=== PATIENT | male | born 2000 | race Caucasian/White ===

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

== ENCOUNTER → 2020-08-23 | Outpatient (CLI) | payer OTHER, MEDICAID ==
[~2020-08-23] MED LIST changes: +HYDR1TAB33 PO; +IBUP-1856 PO; -IBUP100S37 PO; +INVE234I IM; -MELA2.5C3 PO; +MELA2.5C4 PO; +MELATAB7 PO; +TRAZ-252 PO
[2020-08-23 10:32] LABS: BASO # 0.1 10^3/uL (0.0-0.2); BASO % 0.9 % (0.0-1.0); EOS # 0.5 10^3/uL (0.0-0.5); EOS % 6.5 % (0.0-3.0); HEMATOCRIT 46.3 % (42.0-52.0); HEMOGLOBIN 15.6 g/dl (13.5-17.5); LYMPH # 2.5 10^3/uL (1.5-5.0); LYMPH % 31.9 % (24.0-44.0); MEAN CORPUSCULAR HEMOGLOBIN 29.7 pg (27.0-33.0); MEAN CORPUSCULAR HGB CONC 33.7 g/dl (32.0-36.5); MONO # 0.6 10^3/uL (0.0-0.8); MONO % 7.2 % (2.0-8.0); NEUTROPHILS # 4.2 10^3/uL (1.5-8.5); NEUTROPHILS % 53.2 % (36.0-66.0); PLATELET COUNT, AUTOMATED 244 10^3/uL (150-450); RED BLOOD COUNT 5.26 10^6/uL (4.30-6.10); WHITE BLOOD COUNT 7.9 10^3/uL (4.0-10.0)
[2020-08-23 10:41] LABS: HEMOGLOBIN A1c 5.2 %
[2020-08-23 10:59] LABS: ALBUMIN 4.1 GM/DL (3.2-5.2); ALT/SGPT 64 U/L (12-78); BILIRUBIN,TOTAL 0.6 MG/DL (0.2-1.0); BLOOD UREA NITROGEN 11 MG/DL (7-18); CALCIUM LEVEL 9.2 MG/DL (8.5-10.1); CARBON DIOXIDE LEVEL 30 MEQ/L (21-32); CHLORIDE LEVEL 107 MEQ/L (98-107); CHOLESTEROL LEVEL 155 MG/DL (<200); CHOLESTEROL RISK RATIO 3.875 (<5); CREATININE FOR GFR 0.87 MG/DL (0.70-1.30); GLUCOSE, FASTING 98 MG/DL (70-100); HDL CHOLESTEROL 40 MG/DL (>40); LDL CHOLESTEROL 84 MG/DL (<100); NON-HDL-C 115 MG/DL; POTASSIUM SERUM 4.1 MEQ/L (3.5-5.1); SODIUM LEVEL 139 MEQ/L (136-145); THYROID STIMULATING HORMONE 0.511 uIU/ML (0.463-3.98); TOTAL PROTEIN 7.5 GM/DL (6.4-8.2); TRIGLYCERIDES LEVEL 157 MG/DL (<150)
== END ==
LOC: M WUC 08:23
PROVIDERS: ATTEND Nurse Practitioner Psychiatric/Mental Health
DX: F25.0 Schizoaffective disorder, bipolar type (principal)

== ENCOUNTER 2021-05-02 13:48 | Inpatient (IN) | payer BC, MEDICAID, OTHER ==
[~2021-05-02] VITALS: Ht 177.8 cm; Wt 71.4 kg
[2021-05-02 14:49] LABS: HEMATOCRIT 44.7 % (42.0-52.0); HEMOGLOBIN 15.4 g/dl (13.5-17.5); MEAN CORPUSCULAR HEMOGLOBIN 29.2 pg (27.0-33.0); MEAN CORPUSCULAR HGB CONC 34.5 g/dl (32.0-36.5); MEAN CORPUSCULAR VOLUME 84.7 fl (80.0-96.0); PLATELET COUNT, AUTOMATED 340 10^3/uL (150-450); RED BLOOD COUNT 5.28 10^6/uL (4.30-6.10); WHITE BLOOD COUNT 7.2 10^3/uL (4.0-10.0)
[2021-05-02 15:28] LABS: ACETAMINOPHEN LEVEL < 2.0 UG/ML (10.0-30.0); ALBUMIN 4.8 GM/DL (3.2-5.2); ALT/SGPT 28 U/L (12-78); BILIRUBIN,DIRECT 0.2 MG/DL (0.0-0.2); BILIRUBIN,TOTAL 0.8 MG/DL (0.2-1.0); BLOOD UREA NITROGEN 15 MG/DL (7-18); CALCIUM LEVEL 9.9 MG/DL (8.5-10.1); CARBON DIOXIDE LEVEL 21 MEQ/L (21-32); CHLORIDE LEVEL 106 MEQ/L (98-107); CREATININE FOR GFR 1.01 MG/DL (0.70-1.30); ETHYL ALCOHOL (ETHANOL) < 0.003 % (0.000-0.010); GLOMERULAR FILTRATION RATE > 60.0 (>60); GLUCOSE, FASTING 77 MG/DL (70-100); POTASSIUM SERUM 4.5 MEQ/L (3.5-5.1); SALICYLATE LEVEL 1.7 MG/DL (5.0-30.0); SODIUM LEVEL 140 MEQ/L (136-145); TOTAL PROTEIN 8.8 GM/DL (6.4-8.2)
[2021-05-02] MEDS ORDERED: OLANZapine ORAL DISINTEGRATING TAB 5MG PO ONE (15:50)
[2021-05-02] MEDS ORDERED: HOME MED LIST COMPLETE! XX SCH (18:00)
[2021-05-02 20:24] LABS: AMPHETAMINES LEVEL URINE NEGATIVE (NEGATIVE); BARBITURATES URINE NEGATIVE (NEGATIVE); BENZODIAZEPINES URINE NEGATIVE (NEGATIVE); CANNABINOIDS URINE NEGATIVE (NEGATIVE); COCAINE METABOLITE URINE NEGATIVE (NEGATIVE); METHADONE URINE NEGATIVE (NEGATIVE); OPIATES URINE NEGATIVE (NEGATIVE); PHENCYCLIDINE URINE NEGATIVE (NEGATIVE)
[2021-05-02 23:42] LABS: RSV AMPLIFICATION NEGATIVE (NEGATIVE)
[2021-05-03] MEDS ORDERED: MAALOX 30 ML SUSP *UDC PO PRN (00:15)
[2021-05-03] MEDS ORDERED: ACETAMINOPHEN TAB 650MG DOSE (2X325MG) PO PRN (00:15)
[2021-05-03] MEDS ORDERED: MOM 30ML SUSPENSION UDC PO PRN (00:15)
[2021-05-03 01:55] VITALS: BP 138/74
[2021-05-03 07:11] VITALS: BP 141/66
[2021-05-03 18:54] VITALS: BP 140/78
[2021-05-04 06:41] VITALS: BP 143/76
[2021-05-04] MEDS ORDERED: INFLUENZA QUADRIVALENT PF VACCINE 0.5ML SYRINGE IM ONE (09:00)
[2021-05-04 18:56] VITALS: BP 120/70
[2021-05-04] MEDS: traZODone 50 MG TAB PO PRN (20:05)
[2021-05-05 06:39] VITALS: BP 122/76
[2021-05-05 16:27] VITALS: BP 132/78
[2021-05-06 06:40] VITALS: BP 139/78
[2021-05-06] MEDS: NICOTINE 21MG/24HR 1 EA TRANSDERMAL TD PRN (08:40)
[2021-05-06 16:41] VITALS: BP 131/78
[2021-05-06] MEDS: traZODone 50 MG TAB PO PRN (20:10)
[2021-05-07 06:19] VITALS: BP 161/75
[2021-05-07] MEDS: NICOTINE 21MG/24HR 1 EA TRANSDERMAL TD PRN (11:04)
[2021-05-07] MEDS ORDERED: hydrOXYzine 25 MG TAB PO PRN (11:25)
[2021-05-07] MEDS ORDERED: busPIRone 5 MG TAB PO ONE (11:45)
[2021-05-07 17:15] VITALS: BP 108/63
[2021-05-07] MEDS: OLANZapine ORAL DISINTEGRATING TAB 5MG PO PRN (23:49)
[2021-05-08 07:01] VITALS: BP 107/52
[2021-05-08] MEDS ORDERED: ARIPiprazole MONOHYDRATE 400 MG INJ (ABILIFY) IM ONE (09:00)
[2021-05-08] MEDS: busPIRone 5 MG TAB PO SCH ×2 (10:24→21:46)
[2021-05-08] MEDS: NICOTINE 21MG/24HR 1 EA TRANSDERMAL TD PRN (15:31)
[2021-05-08 19:04] VITALS: BP 133/60
[2021-05-09] MEDS: traZODone 50 MG TAB PO PRN (01:14)
[2021-05-09] MEDS: OLANZapine ORAL DISINTEGRATING TAB 5MG PO PRN ×2 (01:14→22:19)
[2021-05-09 06:59] VITALS: BP 103/50
[2021-05-09] MEDS: busPIRone 5 MG TAB PO SCH ×2 (09:45→20:58)
[2021-05-09] MEDS: SENOKOT S TAB PO SCH ×2 (12:19→20:58)
[2021-05-09 12:38] LABS: HEMATOCRIT 43.8 % (42.0-52.0); HEMOGLOBIN 15.3 g/dl (13.5-17.5); MEAN CORPUSCULAR HEMOGLOBIN 29.5 pg (27.0-33.0); MEAN CORPUSCULAR HGB CONC 34.9 g/dl (32.0-36.5); MEAN CORPUSCULAR VOLUME 84.6 fl (80.0-96.0); PLATELET COUNT, AUTOMATED 290 10^3/uL (150-450); RED BLOOD COUNT 5.18 10^6/uL (4.30-6.10); WHITE BLOOD COUNT 8.9 10^3/uL (4.0-10.0)
[2021-05-09 13:03] LABS: BLOOD UREA NITROGEN 19 MG/DL (7-18); CALCIUM LEVEL 10.3 MG/DL (8.5-10.1); CARBON DIOXIDE LEVEL 28 MEQ/L (21-32); CHLORIDE LEVEL 105 MEQ/L (98-107); CREATININE FOR GFR 1.02 MG/DL (0.70-1.30); GLOMERULAR FILTRATION RATE > 60.0 (>60); GLUCOSE, FASTING 104 MG/DL (70-100); POTASSIUM SERUM 4.3 MEQ/L (3.5-5.1); SODIUM LEVEL 138 MEQ/L (136-145)
[2021-05-09] MEDS: MIRALAX *UNIT DOSE* 17GM PACKET PO SCH (13:24)
[2021-05-09 16:37] VITALS: BP 114/68
[2021-05-10 06:33] VITALS: BP 106/52
[2021-05-10] MEDS: SENOKOT S TAB PO SCH ×3 (09:00→21:36)
[2021-05-10] MEDS: MIRALAX *UNIT DOSE* 17GM PACKET PO SCH ×2 (09:00→10:14)
[2021-05-10] MEDS: busPIRone 5 MG TAB PO SCH ×2 (09:13→21:36)
[2021-05-10 16:19] VITALS: BP_SYST 140; BP_DIAS 72; BP_DIAS 83
[2021-05-11 06:40] VITALS: BP 118/56
[2021-05-11] MEDS: busPIRone 5 MG TAB PO SCH ×2 (08:46→20:04)
[2021-05-11] MEDS: SENOKOT S TAB PO SCH ×2 (08:46→20:04)
[2021-05-11] MEDS: NICOTINE 21MG/24HR 1 EA TRANSDERMAL TD PRN (08:47)
[2021-05-11] MEDS: MIRALAX *UNIT DOSE* 17GM PACKET PO SCH (08:48)
[2021-05-11] MEDS: OLANZapine ORAL DISINTEGRATING TAB 5MG PO PRN (12:59)
[2021-05-11 18:12] VITALS: BP 124/74
[2021-05-11] MEDS: traZODone 50 MG TAB PO PRN (20:04)
[2021-05-12] MEDS: OLANZapine ORAL DISINTEGRATING TAB 5MG PO PRN ×2 (00:43→16:13)
[2021-05-12 06:59] VITALS: BP 110/63
[2021-05-12] MEDS: MIRALAX *UNIT DOSE* 17GM PACKET PO SCH (08:56)
[2021-05-12] MEDS: SENOKOT S TAB PO SCH ×2 (08:56→20:33)
[2021-05-12] MEDS: busPIRone 5 MG TAB PO SCH ×2 (08:56→20:33)
[2021-05-12] MEDS: NICOTINE 21MG/24HR 1 EA TRANSDERMAL TD PRN (09:39)
[2021-05-12 17:52] VITALS: BP 113/59
[2021-05-12] MEDS: traZODone 50 MG TAB PO PRN (20:33)
[2021-05-13 07:06] VITALS: BP 120/56
[2021-05-13] MEDS: MIRALAX *UNIT DOSE* 17GM PACKET PO SCH (08:26)
[2021-05-13] MEDS: SENOKOT S TAB PO SCH (08:30)
[2021-05-13] MEDS: busPIRone 5 MG TAB PO SCH (08:31)
[2021-05-13] MEDS ORDERED: BENZ0.5T23 PO (10:04)
[2021-05-13] MEDS ORDERED: BUSP5TA PO (10:04)
[2021-05-13] MEDS ORDERED: TRAZ-252 PO (10:04)
[2021-05-13] MEDS ORDERED: ABIL1INJ2 IM (10:04)
[2021-05-13] MEDS: OLANZapine ORAL DISINTEGRATING TAB 5MG PO PRN (10:15)
== END 2021-05-13 13:05 | disposition home or self-care (01) | DRG 750 ==
LOC: M ED 13:48 → M ED INP 05-03 00:11 → M PSY 05-03 01:47
PROVIDERS: ADMIT Psychiatry & Neurology Psychiatry; ATTEND Psychiatry & Neurology Psychiatry
DX: F25.0 Schizoaffective disorder, bipolar type (principal); Z91.14 Patient's other noncompliance with medication regimen; R45.851 Suicidal ideations; Z91.018 Allergy to other foods; Z88.8 Allergy status to other drugs, medicaments and biological substances; F17.200 Nicotine dependence, unspecified, uncomplicated; F12.90 Cannabis use, unspecified, uncomplicated; K59.00 Constipation, unspecified; R33.9 Retention of urine, unspecified

== ENCOUNTER 2021-11-26 03:29 | Inpatient (IN) | payer MEDICAID, OTHER, SELFPAY ==
[~2021-11-26 03:29] MED LIST changes: +ABIL1INJ2 IM; +BENZ0.5T23 PO; +BUSP5TA PO
[2021-11-26] MEDS ORDERED: diphenhydrAMINE 50MG/ML VIAL (J1200) IM ONE (03:35)
[2021-11-26] MEDS ORDERED: MIDAZOLAM INJ 2MG/2ML VIAL (J2250 PER 1MG) IM ONE (03:35)
[2021-11-26] MEDS ORDERED: HALOPERIDOL 5MG/ML VIAL (J1630 PER 1) IM ONE (03:35)
[2021-11-26] MEDS ORDERED: HALOPERIDOL 5MG/ML VIAL (J1630 PER 1) As Ordered ONE (03:37)
[2021-11-26] MEDS ORDERED: NS 1,000 ML IV ONE (03:50)
[2021-11-26] MEDS ORDERED: LORazepam 2 MG/ML VIAL IV STA ×4 (04:00→05:32)
[2021-11-26 04:36] LABS: BASO # 0.2 10^3/uL (0.0-0.2); BASO % 0.6 % (0.0-1.0); EOS # 0.5 10^3/uL (0.0-0.5); EOS % 1.9 % (0.0-3.0); HEMATOCRIT 50.2 % (42.0-52.0); HEMOGLOBIN 15.3 g/dl (13.5-17.5); LYMPH # 9.5 10^3/uL (1.5-5.0); LYMPH % 38.4 % (24.0-44.0); MEAN CORPUSCULAR HEMOGLOBIN 28.8 pg (27.0-33.0); MEAN CORPUSCULAR HGB CONC 30.5 g/dl (32.0-36.5); MEAN CORPUSCULAR VOLUME 94.4 fl (80.0-96.0); MONO # 1.4 10^3/uL (0.0-0.8); MONO % 5.4 % (2.0-8.0); NEUTROPHILS # 12.9 10^3/uL (1.5-8.5); NEUTROPHILS % 51.9 % (36.0-66.0); PLATELET COUNT, AUTOMATED 503 10^3/uL (150-450); RED BLOOD COUNT 5.32 10^6/uL (4.30-6.10); WHITE BLOOD COUNT 24.8 10^3/uL (4.0-10.0)
[2021-11-26 04:46] LABS: ABG BASE EXCESS -15.8 (-2.0-2.0); ABG HCO3 10.5 MEQ/L (22.0-26.0); ABG O2 SATURATION 96.8 % (95.0-99.0); ABG PARTIAL PRESSURE O2 103.8 mmHg (75.0-100.0); ABG STANDARD HCO3 12.8 MEQ/L (22.0-26.0); ABG TOTAL CO2 11.3 MEQ/L (22.0-29.0)
[2021-11-26 04:48] LABS: ABG pH (ARTERIAL) 7.206 UNITS (7.350-7.450)
[2021-11-26] MEDS ORDERED: NS 2,300 ML in IV 1 EA IV ONE (04:50)
[2021-11-26 04:55] LABS: RSV AMPLIFICATION NEGATIVE (NEGATIVE)
[2021-11-26 05:01] LABS: CK-MB VALUE MASS 1.9 NG/ML (<3.6); MB/CK RELATIVE INDEX 0.6 (< OR =4)
[2021-11-26 05:10] LABS: AMPHETAMINES LEVEL URINE NEGATIVE (NEGATIVE); BARBITURATES URINE NEGATIVE (NEGATIVE); BENZODIAZEPINES URINE NEGATIVE (NEGATIVE); CANNABINOIDS URINE NEGATIVE (NEGATIVE); COCAINE METABOLITE URINE NEGATIVE (NEGATIVE); METHADONE URINE NEGATIVE (NEGATIVE); OPIATES URINE NEGATIVE (NEGATIVE); PHENCYCLIDINE URINE NEGATIVE (NEGATIVE)
[2021-11-26 05:15] LABS: ACETAMINOPHEN LEVEL < 2.0 UG/ML (10.0-30.0); ALBUMIN 4.7 GM/DL (3.2-5.2); ALT/SGPT 44 U/L (12-78); BILIRUBIN,DIRECT 0.1 MG/DL (0.0-0.2); BILIRUBIN,TOTAL 0.4 MG/DL (0.2-1.0); BLOOD UREA NITROGEN 13 MG/DL (7-18); CALCIUM LEVEL 10.3 MG/DL (8.5-10.1); CARBON DIOXIDE LEVEL 8 MEQ/L (21-32); CHLORIDE LEVEL 99 MEQ/L (98-107); CREATININE FOR GFR 1.54 MG/DL (0.70-1.30); ETHYL ALCOHOL (ETHANOL) < 0.003 % (0.000-0.010); GLOMERULAR FILTRATION RATE > 60.0 (>60); GLUCOSE, FASTING 241 MG/DL (70-100); POTASSIUM SERUM 4.3 MEQ/L (3.5-5.1); SALICYLATE LEVEL 2.6 MG/DL (5.0-30.0); SODIUM LEVEL 136 MEQ/L (136-145); TOTAL PROTEIN 9.1 GM/DL (6.4-8.2)
[2021-11-26] MEDS ORDERED: ACETAMINOPHEN 650 MG SUPP PR ONE (06:10)
[2021-11-26 07:28] LABS: CK-MB VALUE MASS 4.4 NG/ML (<3.6); MB/CK RELATIVE INDEX 0.42 (< OR =4)
[2021-11-26] MEDS ORDERED: NS 1,000 ML IV SCH (07:35)
[2021-11-26 08:09] LABS: BASO # 0.1 10^3/uL (0.0-0.2); BASO % 0.2 % (0.0-1.0); EOS % 0.1 % (0.0-3.0); HEMATOCRIT 38.7 % (42.0-52.0); HEMOGLOBIN 13.2 g/dl (13.5-17.5); LYMPH # 2.1 10^3/uL (1.5-5.0); LYMPH % 9.9 % (24.0-44.0); MEAN CORPUSCULAR HEMOGLOBIN 29.3 pg (27.0-33.0); MEAN CORPUSCULAR HGB CONC 34.1 g/dl (32.0-36.5); MEAN CORPUSCULAR VOLUME 85.8 fl (80.0-96.0); MONO # 1.1 10^3/uL (0.0-0.8); MONO % 5.3 % (2.0-8.0); NEUTROPHILS # 17.7 10^3/uL (1.5-8.5); NEUTROPHILS % 83.7 % (36.0-66.0); RED BLOOD COUNT 4.51 10^6/uL (4.30-6.10); WHITE BLOOD COUNT 21.1 10^3/uL (4.0-10.0)
[2021-11-26 08:35] LABS: PLATELET COUNT, AUTOMATED 302 10^3/uL (150-450)
[2021-11-26] MEDS: FOLIC ACID 1MG TAB PO SCH (09:00)
[2021-11-26] MEDS: MULTIVITAMINS/MINERALS THERAP 1 TAB PO SCH (09:00)
[2021-11-26] MEDS: THIAMINE 100 MG TAB PO SCH ×2 (09:00→21:56)
[2021-11-26] MEDS ORDERED: GLUCOSE 4GM CHEW TABLET PO PRN (09:45)
[2021-11-26] MEDS ORDERED: DEXTROSE 50% 50 ML SYRINGE IV PRN (09:45)
[2021-11-26] MEDS ORDERED: GLUCAGON INJ 1MG VIAL SC PRN (09:45)
[2021-11-26] MEDS ORDERED: ACETAMINOPHEN TAB 650MG DOSE (2X325MG) PO PRN (09:45)
[2021-11-26 09:46] LABS: ABG BASE EXCESS -5.1 (-2.0-2.0); ABG HCO3 18.8 MEQ/L (22.0-26.0); ABG O2 SATURATION 97.5 % (95.0-99.0); ABG PARTIAL PRESSURE O2 100.5 mmHg (75.0-100.0); ABG STANDARD HCO3 20.3 MEQ/L (22.0-26.0); ABG TOTAL CO2 19.8 MEQ/L (22.0-29.0); ABG pH (ARTERIAL) 7.387 UNITS (7.350-7.450)
[2021-11-26] MEDS ORDERED: ABIL1INJ2 IM (09:59)
[2021-11-26] MEDS ORDERED: HOME MED LIST COMPLETE! XX SCH (10:00)
[2021-11-26 10:32] LABS: BASO % 0.2 % (0.0-1.0); EOS % 0.2 % (0.0-3.0); HEMATOCRIT 38.7 % (42.0-52.0); HEMOGLOBIN 13.1 g/dl (13.5-17.5); LYMPH # 1.9 10^3/uL (1.5-5.0); LYMPH % 11.4 % (24.0-44.0); MEAN CORPUSCULAR HEMOGLOBIN 29.4 pg (27.0-33.0); MEAN CORPUSCULAR HGB CONC 33.9 g/dl (32.0-36.5); MONO % 6.2 % (2.0-8.0); NEUTROPHILS # 13.5 10^3/uL (1.5-8.5); NEUTROPHILS % 81.3 % (36.0-66.0); PLATELET COUNT, AUTOMATED 282 10^3/uL (150-450); RED BLOOD COUNT 4.45 10^6/uL (4.30-6.10); WHITE BLOOD COUNT 16.5 10^3/uL (4.0-10.0)
[2021-11-26 10:45] LABS: APPEARANCE, URINE MANUAL CLEAR (CLEAR); COLOR, URINE MANUAL YELLOW (YELLOW)
[2021-11-26 10:46] LABS: BILIRUBIN, URINE MANUAL NEGATIVE (NEGATIVE); BLOOD URINE MANUAL TRACE (NEGATIVE); GLUCOSE, URINE (UA) MANUAL NEGATIVE (NEGATIVE); KETONE, URINE MANUAL 1+ mg/dL (NEGATIVE); LEUKOCYTE ESTERASE, URINE MAN NEGATIVE (NEGATIVE); NITRITE, URINE MANUAL NEGATIVE (NEGATIVE); PROTEIN, URINE MANUAL TRACE mg/dL (NEGATIVE); UROBILINOGEN, URINE MANUAL NORMAL (NORMAL)
[2021-11-26 10:55] LABS: HYALINE CAST, URINE 20-30 /lpf (0-1)
[2021-11-26 10:56] LABS: MUCUS, URINE MOD AMOUNT (NEGATIVE)
[2021-11-26 10:57] LABS: BACTERIA, URINE SMALL AMOUNT; SQUAMOUS EPITHELIAL CELL URINE SMALL AMOUNT /hpf (SMALL AMT)
[2021-11-26] MEDS: INSULIN LISPRO (NovoLOG) PER UNIT SC SCH ×3 (12:00→23:19)
[2021-11-26 12:17] LABS: ALBUMIN 3.7 GM/DL (3.2-5.2); ALT/SGPT 42 U/L (12-78); BILIRUBIN,TOTAL 0.5 MG/DL (0.2-1.0); BLOOD UREA NITROGEN 9 MG/DL (7-18); CALCIUM LEVEL 8.1 MG/DL (8.5-10.1); CARBON DIOXIDE LEVEL 21 MEQ/L (21-32); CHLORIDE LEVEL 112 MEQ/L (98-107); CREATININE FOR GFR 1.03 MG/DL (0.70-1.30); GLOMERULAR FILTRATION RATE > 60.0 (>60); GLUCOSE, FASTING 87 MG/DL (70-100); POTASSIUM SERUM 3.9 MEQ/L (3.5-5.1); SODIUM LEVEL 140 MEQ/L (136-145); TOTAL PROTEIN 6.8 GM/DL (6.4-8.2)
[2021-11-26] MEDS: NS 1,000 ML IV SCH ×2 (13:50→21:57)
[2021-11-26] MEDS: HEPARIN SOD (PORCINE) 5000UNITS/ML 1ML VIAL/SYRINGE SC SCH ×2 (14:00→21:56)
[2021-11-26 17:00] VITALS: BP 133/60
[2021-11-26 20:00] VITALS: BP 118/57
[2021-11-26] MEDS: LORazepam 2 MG TAB PO PRN (21:56)
[2021-11-27] VITALS (10 sets, daily range): BP systolic 117–132; BP diastolic 55–74
[2021-11-27] MEDS: NS 1,000 ML IV SCH (02:37)
[2021-11-27] MEDS: INSULIN LISPRO (NovoLOG) PER UNIT SC SCH ×3 (05:32→18:00)
[2021-11-27] MEDS: HEPARIN SOD (PORCINE) 5000UNITS/ML 1ML VIAL/SYRINGE SC SCH ×4 (05:39→21:23)
[2021-11-27 06:08] LABS: BASO # 0.1 10^3/uL (0.0-0.2); BASO % 0.7 % (0.0-1.0); EOS # 0.5 10^3/uL (0.0-0.5); EOS % 6.9 % (0.0-3.0); HEMATOCRIT 31.9 % (42.0-52.0); LYMPH # 1.7 10^3/uL (1.5-5.0); LYMPH % 24.4 % (24.0-44.0); MEAN CORPUSCULAR HEMOGLOBIN 29.6 pg (27.0-33.0); MEAN CORPUSCULAR HGB CONC 32.3 g/dl (32.0-36.5); MEAN CORPUSCULAR VOLUME 91.7 fl (80.0-96.0); MONO # 0.6 10^3/uL (0.0-0.8); MONO % 8.5 % (2.0-8.0); NEUTROPHILS # 4.1 10^3/uL (1.5-8.5); NEUTROPHILS % 59.2 % (36.0-66.0); RED BLOOD COUNT 3.48 10^6/uL (4.30-6.10)
[2021-11-27 06:24] LABS: HEMOGLOBIN 10.3 g/dl (13.5-17.5); PLATELET COUNT, AUTOMATED 179 10^3/uL (150-450)
[2021-11-27 06:47] LABS: ALT/SGPT 68 U/L (12-78); BILIRUBIN,TOTAL 0.4 MG/DL (0.2-1.0); BLOOD UREA NITROGEN 8 MG/DL (7-18); CALCIUM LEVEL 7.7 MG/DL (8.5-10.1); CARBON DIOXIDE LEVEL 24 MEQ/L (21-32); CHLORIDE LEVEL 112 MEQ/L (98-107); CREATININE FOR GFR 0.78 MG/DL (0.70-1.30); GLOMERULAR FILTRATION RATE > 60.0 (>60); GLUCOSE, FASTING 94 MG/DL (70-100); POTASSIUM SERUM 4.1 MEQ/L (3.5-5.1); SODIUM LEVEL 140 MEQ/L (136-145)
[2021-11-27] MEDS: FOLIC ACID 1MG TAB PO SCH (11:09)
[2021-11-27] MEDS: THIAMINE 100 MG TAB PO SCH ×2 (11:09→21:15)
[2021-11-27] MEDS: LR 1,000 ML IV SCH ×2 (11:09→17:33)
[2021-11-27] MEDS: MULTIVITAMINS/MINERALS THERAP 1 TAB PO SCH (11:10)
[2021-11-27] MEDS ORDERED: NICOTINE 14 MG/24 HR TRANSDERMAL TD SCH (22:05)
[2021-11-27] MEDS ORDERED: NICOTINE POLACRILEX 2 MG GUM PO PRN (22:35)
[2021-11-27] MEDS ORDERED: NICOTINE 14 MG/24 HR TRANSDERMAL TD ONE (23:00)
[2021-11-28 00:09] VITALS: BP 117/56
[2021-11-28] MEDS: LR 1,000 ML IV SCH ×3 (00:16→12:25)
[2021-11-28] MEDS: LORazepam 2 MG TAB PO PRN (00:45)
[2021-11-28 04:09] VITALS: BP 116/59
[2021-11-28] MEDS: HEPARIN SOD (PORCINE) 5000UNITS/ML 1ML VIAL/SYRINGE SC SCH ×3 (05:14→21:10)
[2021-11-28 05:58] LABS: BASO # 0.1 10^3/uL (0.0-0.2); BASO % 0.7 % (0.0-1.0); EOS # 0.7 10^3/uL (0.0-0.5); EOS % 9.3 % (0.0-3.0); HEMATOCRIT 39.7 % (42.0-52.0); HEMOGLOBIN 12.9 g/dl (13.5-17.5); LYMPH # 2.4 10^3/uL (1.5-5.0); LYMPH % 31.6 % (24.0-44.0); MEAN CORPUSCULAR HEMOGLOBIN 28.9 pg (27.0-33.0); MEAN CORPUSCULAR HGB CONC 32.5 g/dl (32.0-36.5); MEAN CORPUSCULAR VOLUME 88.8 fl (80.0-96.0); MONO # 0.7 10^3/uL (0.0-0.8); MONO % 8.7 % (2.0-8.0); NEUTROPHILS # 3.8 10^3/uL (1.5-8.5); NEUTROPHILS % 49.4 % (36.0-66.0); PLATELET COUNT, AUTOMATED 226 10^3/uL (150-450); RED BLOOD COUNT 4.47 10^6/uL (4.30-6.10); WHITE BLOOD COUNT 7.6 10^3/uL (4.0-10.0)
[2021-11-28] MEDS: INSULIN LISPRO (NovoLOG) PER UNIT SC SCH ×4 (06:00→17:19)
[2021-11-28 06:28] LABS: BLOOD UREA NITROGEN 6 MG/DL (7-18); CARBON DIOXIDE LEVEL 26 MEQ/L (21-32); CHLORIDE LEVEL 105 MEQ/L (98-107); CREATININE FOR GFR 0.78 MG/DL (0.70-1.30); GLOMERULAR FILTRATION RATE > 60.0 (>60); GLUCOSE, FASTING 102 MG/DL (70-100); MAGNESIUM LEVEL 1.8 MG/DL (1.8-2.4); PHOSPHORUS LEVEL 4.7 MG/DL (2.5-4.9); POTASSIUM SERUM 4.1 MEQ/L (3.5-5.1); SODIUM LEVEL 139 MEQ/L (136-145)
[2021-11-28 08:03] VITALS: BP 135/72
[2021-11-28] MEDS: THIAMINE 100 MG TAB PO SCH ×2 (08:50→21:08)
[2021-11-28] MEDS: FOLIC ACID 1MG TAB PO SCH (08:50)
[2021-11-28] MEDS: MULTIVITAMINS/MINERALS THERAP 1 TAB PO SCH (08:51)
[2021-11-28] MEDS: NS 1,000 ML IV SCH ×2 (16:36→23:11)
[2021-11-28 20:00] VITALS: BP 112/52
[2021-11-28 20:32] VITALS: BP 112/52
[2021-11-28] MEDS ORDERED: LORazepam 1 MG TAB PO ONE (20:50)
[2021-11-29 04:10] LABS: BASO # 0.1 10^3/uL (0.0-0.2); BASO % 0.7 % (0.0-1.0); EOS # 0.6 10^3/uL (0.0-0.5); EOS % 8.3 % (0.0-3.0); HEMATOCRIT 38.9 % (42.0-52.0); HEMOGLOBIN 13.1 g/dl (13.5-17.5); LYMPH # 2.6 10^3/uL (1.5-5.0); LYMPH % 34.6 % (24.0-44.0); MEAN CORPUSCULAR HEMOGLOBIN 29.8 pg (27.0-33.0); MEAN CORPUSCULAR HGB CONC 33.7 g/dl (32.0-36.5); MEAN CORPUSCULAR VOLUME 88.4 fl (80.0-96.0); MONO # 0.5 10^3/uL (0.0-0.8); MONO % 6.3 % (2.0-8.0); NEUTROPHILS # 3.7 10^3/uL (1.5-8.5); NEUTROPHILS % 49.8 % (36.0-66.0); PLATELET COUNT, AUTOMATED 238 10^3/uL (150-450); WHITE BLOOD COUNT 7.5 10^3/uL (4.0-10.0)
[2021-11-29 04:39] LABS: BLOOD UREA NITROGEN 9 MG/DL (7-18); CALCIUM LEVEL 8.8 MG/DL (8.5-10.1); CARBON DIOXIDE LEVEL 26 MEQ/L (21-32); CHLORIDE LEVEL 106 MEQ/L (98-107); CREATININE FOR GFR 0.73 MG/DL (0.70-1.30); GLOMERULAR FILTRATION RATE > 60.0 (>60); GLUCOSE, FASTING 114 MG/DL (70-100); MAGNESIUM LEVEL 1.8 MG/DL (1.8-2.4); PHOSPHORUS LEVEL 4.6 MG/DL (2.5-4.9); POTASSIUM SERUM 4.1 MEQ/L (3.5-5.1); SODIUM LEVEL 137 MEQ/L (136-145)
[2021-11-29] MEDS: NS 1,000 ML IV SCH ×3 (05:21→18:49)
[2021-11-29] MEDS: HEPARIN SOD (PORCINE) 5000UNITS/ML 1ML VIAL/SYRINGE SC SCH ×3 (05:22→20:31)
[2021-11-29 06:00] VITALS: BP 112/52
[2021-11-29 08:00] VITALS: BP 110/54
[2021-11-29] MEDS: MULTIVITAMINS/MINERALS THERAP 1 TAB PO SCH (09:19)
[2021-11-29] MEDS: FOLIC ACID 1MG TAB PO SCH (09:20)
[2021-11-29 15:46] VITALS: BP 111/52
[2021-11-29 18:50] VITALS: BP 128/67
[2021-11-29] MEDS ORDERED: LORazepam 0.5 MG TAB PO PRN (21:05)
[2021-11-29 22:00] VITALS: BP 131/70
[2021-11-30] MEDS: HEPARIN SOD (PORCINE) 5000UNITS/ML 1ML VIAL/SYRINGE SC SCH ×2 (01:53→14:00)
[2021-11-30] MEDS: NS 1,000 ML IV SCH ×3 (01:53→14:45)
[2021-11-30 06:00] VITALS: BP_SYST 131; BP_SYST 132; BP_DIAS 74; BP_DIAS 86
[2021-11-30 07:06] LABS: BLOOD UREA NITROGEN 8 MG/DL (7-18); CALCIUM LEVEL 8.7 MG/DL (8.5-10.1); CARBON DIOXIDE LEVEL 26 MEQ/L (21-32); CHLORIDE LEVEL 107 MEQ/L (98-107); CREATININE FOR GFR 0.74 MG/DL (0.70-1.30); GLOMERULAR FILTRATION RATE > 60.0 (>60); GLUCOSE, FASTING 109 MG/DL (70-100); MAGNESIUM LEVEL 1.9 MG/DL (1.8-2.4); PHOSPHORUS LEVEL 3.9 MG/DL (2.5-4.9); POTASSIUM SERUM 4.3 MEQ/L (3.5-5.1); SODIUM LEVEL 137 MEQ/L (136-145)
[2021-11-30] MEDS: MULTIVITAMINS/MINERALS THERAP 1 TAB PO SCH (09:09)
[2021-11-30] MEDS: FOLIC ACID 1MG TAB PO SCH (09:09)
[2021-11-30] MEDS ORDERED: THIA100T7 PO (13:57)
[2021-11-30] MEDS ORDERED: VITMTA PO (13:57)
[2021-11-30] MEDS ORDERED: FOLI1TAB11 PO (13:57)
[2021-11-30 14:00] VITALS: BP 136/65
[2021-11-30 17:11] VITALS: BP 132/59
== END 2021-11-30 17:15 | disposition home or self-care (01) | DRG 52 ==
LOC: M ED 03:29 → M ED INP 11:42 → M PCU 17:15 → M MS5PR 11-29 18:37
PROVIDERS: ADMIT Internal Medicine; ATTEND Internal Medicine
DX: G92.8 Other toxic encephalopathy (principal); N17.9 Acute kidney failure, unspecified; E87.20 Acidosis, unspecified; M62.82 Rhabdomyolysis; R82.1 Myoglobinuria; I27.20 Pulmonary hypertension, unspecified; F20.9 Schizophrenia, unspecified; Z78.1 Physical restraint status; F10.10 Alcohol abuse, uncomplicated; F14.10 Cocaine abuse, uncomplicated; F15.10 Other stimulant abuse, uncomplicated; Z91.018 Allergy to other foods; F17.210 Nicotine dependence, cigarettes, uncomplicated; F12.10 Cannabis abuse, uncomplicated; D72.829 Elevated white blood cell count, unspecified; I34.0 Nonrheumatic mitral (valve) insufficiency

== ENCOUNTER 2021-11-30 16:25 | Inpatient (IN) | payer OTHER ==
[~2021-11-30] VITALS: Ht 177.8 cm; Wt 75.4 kg
[~2021-11-30 16:25] MED LIST changes: +FOLI1TAB11 PO; +THIA100T7 PO; +VITMTA PO
[2021-11-30] MEDS ORDERED: ACETAMINOPHEN TAB 650MG DOSE (2X325MG) PO PRN (16:35)
[2021-11-30] MEDS ORDERED: MAALOX 30 ML SUSP *UDC PO PRN (16:35)
[2021-11-30] MEDS ORDERED: MOM 30ML SUSPENSION UDC PO PRN (16:35)
[2021-11-30 17:22] VITALS: BP 132/59
[2021-11-30] MEDS ORDERED: HOME MED LIST COMPLETE! XX SCH ×2 (17:55→18:00)
[2021-11-30] MEDS: LORazepam 0.5 MG TAB PO PRN (18:27)
[2021-12-01 06:34] VITALS: BP 137/65
[2021-12-01] MEDS ORDERED: NICOTINE 21MG/24HR 1 EA TRANSDERMAL TD SCH (09:00)
[2021-12-01] MEDS: FOLIC ACID 1MG TAB PO SCH (10:52)
[2021-12-01] MEDS: MULTIVITAMINS/MINERALS THERAP 1 TAB PO SCH (10:52)
[2021-12-01] MEDS: THIAMINE 100 MG TAB PO SCH (10:52)
[2021-12-01 12:43] LABS: HEMATOCRIT 45.9 % (42.0-52.0); HEMOGLOBIN 15.1 g/dl (13.5-17.5); MEAN CORPUSCULAR HEMOGLOBIN 29.4 pg (27.0-33.0); MEAN CORPUSCULAR HGB CONC 32.9 g/dl (32.0-36.5); MEAN CORPUSCULAR VOLUME 89.5 fl (80.0-96.0); PLATELET COUNT, AUTOMATED 291 10^3/uL (150-450); RED BLOOD COUNT 5.13 10^6/uL (4.30-6.10); WHITE BLOOD COUNT 9.4 10^3/uL (4.0-10.0)
[2021-12-01 13:13] LABS: BLOOD UREA NITROGEN 11 MG/DL (7-18); CALCIUM LEVEL 9.9 MG/DL (8.5-10.1); CARBON DIOXIDE LEVEL 30 MEQ/L (21-32); CHLORIDE LEVEL 103 MEQ/L (98-107); CREATININE FOR GFR 0.98 MG/DL (0.70-1.30); GLOMERULAR FILTRATION RATE > 60.0 (>60); GLUCOSE, FASTING 86 MG/DL (70-100); POTASSIUM SERUM 4.8 MEQ/L (3.5-5.1); SODIUM LEVEL 137 MEQ/L (136-145)
[2021-12-01] MEDS: NICOTINE POLACRILEX 2 MG GUM PO PRN ×3 (13:52→22:14)
[2021-12-01 16:25] VITALS: BP 112/58
[2021-12-01] MEDS: LORazepam 0.5 MG TAB PO PRN (18:04)
[2021-12-02] MEDS: NICOTINE POLACRILEX 2 MG GUM PO PRN ×2 (02:14→09:44)
[2021-12-02 06:44] VITALS: BP 124/65
[2021-12-02] MEDS: FOLIC ACID 1MG TAB PO SCH (09:43)
[2021-12-02] MEDS: THIAMINE 100 MG TAB PO SCH (09:43)
[2021-12-02] MEDS: MULTIVITAMINS/MINERALS THERAP 1 TAB PO SCH (09:43)
== END 2021-12-02 13:06 | disposition home or self-care (01) | DRG 751 ==
LOC: M PSY 17:21
PROVIDERS: ADMIT Psychiatry & Neurology Psychiatry; ATTEND Psychiatry & Neurology Psychiatry
DX: F29 Unspecified psychosis not due to a substance or known physiological condition (principal); F25.1 Schizoaffective disorder, depressive type; F15.90 Other stimulant use, unspecified, uncomplicated; F17.200 Nicotine dependence, unspecified, uncomplicated; F12.90 Cannabis use, unspecified, uncomplicated; Z91.018 Allergy to other foods; Z88.8 Allergy status to other drugs, medicaments and biological substances; Z79.899 Other long term (current) drug therapy

== ENCOUNTER 2022-01-16 00:41 | Emergency (ER) | payer MEDICAID, OTHER ==
[~2022-01-16] VITALS: Ht 177.8 cm; Wt 67.6 kg
[2022-01-16 01:05] LABS: HEMATOCRIT 45.2 % (42.0-52.0); HEMOGLOBIN 14.9 g/dl (13.5-17.5); MEAN CORPUSCULAR HEMOGLOBIN 28.6 pg (27.0-33.0); MEAN CORPUSCULAR VOLUME 86.8 fl (80.0-96.0); PLATELET COUNT, AUTOMATED 251 10^3/uL (150-450); RED BLOOD COUNT 5.21 10^6/uL (4.30-6.10); WHITE BLOOD COUNT 9.4 10^3/uL (4.0-10.0)
[2022-01-16 01:41] LABS: RSV AMPLIFICATION NEGATIVE (NEGATIVE)
[2022-01-16 02:06] LABS: ACETAMINOPHEN LEVEL < 2.0 UG/ML (10.0-20.0); ALBUMIN 4.4 G/DL (3.2-5.2); ALT/SGPT 26 U/L (7.0-40); BILIRUBIN,DIRECT 0.2 MG/DL (<0.4); BILIRUBIN,TOTAL 0.4 MG/DL (0.3-1.2); BLOOD UREA NITROGEN 10 MG/DL (9-23); CALCIUM LEVEL 9.2 MG/DL (8.5-10.1); CARBON DIOXIDE LEVEL 22 MMOL/L (20-31); CHLORIDE LEVEL 100 MMOL/L (98-107); CREATININE FOR GFR 0.95 MG/DL (0.70-1.30); ETHYL ALCOHOL (ETHANOL) 0.003 % (0.000-0.010); GLOMERULAR FILTRATION RATE > 60.0 (>60); GLUCOSE, FASTING 149 MG/DL (60-100); POTASSIUM SERUM 3.8 MMOL/L (3.5-5.1); SODIUM LEVEL 134 MMOL/L (136-145); THYROID STIMULATING HORMONE 0.711 uIU/ML (0.55-4.78)
[2022-01-16] MEDS: LORazepam 2 MG TAB PO STA ×2 (02:28→02:41)
[2022-01-16 03:07] LABS: SALICYLATE LEVEL < 3.0 MG/DL (<30)
[2022-01-16 03:33] LABS: AMPHETAMINES LEVEL URINE POSITIVE (NEGATIVE); BARBITURATES URINE NEGATIVE (NEGATIVE); BENZODIAZEPINES URINE NEGATIVE (NEGATIVE); CANNABINOIDS URINE NEGATIVE (NEGATIVE); COCAINE METABOLITE URINE NEGATIVE (NEGATIVE); METHADONE URINE NEGATIVE (NEGATIVE); OPIATES URINE NEGATIVE (NEGATIVE); PHENCYCLIDINE URINE NEGATIVE (NEGATIVE)
[2022-01-16 06:00] VITALS: BP 126/71
== END 2022-01-16 06:17 | disposition home or self-care (01) ==
LOC: M ED 00:41
DX: F19.159 Other psychoactive substance abuse with psychoactive substance-induced psychotic disorder, unspecified (principal); R45.851 Suicidal ideations; F25.9 Schizoaffective disorder, unspecified; R00.0 Tachycardia, unspecified; F17.200 Nicotine dependence, unspecified, uncomplicated; F10.10 Alcohol abuse, uncomplicated; Z88.1 Allergy status to other antibiotic agents; Z91.018 Allergy to other foods

== ENCOUNTER 2022-06-03 15:52 | Inpatient (IN) | payer MEDICAID, OTHER ==
[~2022-06-03] VITALS: Ht 177.8 cm; Wt 68.9 kg
[~2022-06-03 15:52] MED LIST changes: -IBUP-1856 PO; +IBUP100S54 PO
[2022-06-03 16:32] LABS: HEMATOCRIT 47.1 % (42.0-52.0); MEAN CORPUSCULAR HEMOGLOBIN 29.2 pg (27.0-33.0); MEAN CORPUSCULAR VOLUME 85.9 fl (80.0-96.0); PLATELET COUNT, AUTOMATED 278 10^3/uL (150-450); RED BLOOD COUNT 5.48 10^6/uL (4.30-6.10)
[2022-06-03 16:56] LABS: ETHYL ALCOHOL (ETHANOL) < 0.003 % (0.000-0.010)
[2022-06-03 16:58] LABS: SALICYLATE LEVEL < 3.0 MG/DL (<30)
[2022-06-03 16:59] LABS: ACETAMINOPHEN LEVEL < 2.0 UG/ML (10.0-20.0); ALBUMIN 4.4 G/DL (3.2-5.2); ALKALINE PHOSPHATASE 108 U/L (46-116); ALT/SGPT 27 U/L (7.0-40); AST/SGOT 20 U/L (<34); BILIRUBIN,DIRECT 0.4 MG/DL (<0.4); BILIRUBIN,TOTAL 0.8 MG/DL (0.3-1.2); BLOOD UREA NITROGEN 10 MG/DL (9-23); CALCIUM LEVEL 9.4 MG/DL (8.5-10.1); CARBON DIOXIDE LEVEL 29 MMOL/L (20-31); CHLORIDE LEVEL 103 MMOL/L (98-107); CREATININE FOR GFR 0.86 MG/DL (0.70-1.30); GLOMERULAR FILTRATION RATE > 60.0 (>60); GLUCOSE, FASTING 87 MG/DL (60-100); POTASSIUM SERUM 4.5 MMOL/L (3.5-5.1); SODIUM LEVEL 137 MMOL/L (136-145); TOTAL PROTEIN 7.9 G/DL (5.7-8.2)
[2022-06-03 17:01] LABS: THYROID STIMULATING HORMONE 0.761 uIU/ML (0.55-4.78)
[2022-06-03 17:19] LABS: CANNABINOIDS URINE NEGATIVE (NEGATIVE); PHENCYCLIDINE URINE NEGATIVE (NEGATIVE)
[2022-06-03 17:20] LABS: AMPHETAMINES LEVEL URINE NEGATIVE (NEGATIVE); BARBITURATES URINE NEGATIVE (NEGATIVE); BENZODIAZEPINES URINE NEGATIVE (NEGATIVE); COCAINE METABOLITE URINE NEGATIVE (NEGATIVE); METHADONE URINE NEGATIVE (NEGATIVE); OPIATES URINE NEGATIVE (NEGATIVE)
[2022-06-03] MEDS ORDERED: HOME MED LIST COMPLETE! XX SCH (18:40)
[2022-06-03] MEDS ORDERED: ACETAMINOPHEN TAB 650MG DOSE (2X325MG) PO PRN (19:00)
[2022-06-03] MEDS ORDERED: OLANZapine ORAL DISINTEGRATING TAB 5MG PO PRN (19:00)
[2022-06-03] MEDS ORDERED: MAALOX 30 ML SUSP *UDC PO PRN (19:00)
[2022-06-03] MEDS: traZODone 50 MG TAB PO PRN (23:42)
[2022-06-03 23:45] VITALS: BP 124/63
[2022-06-04] MEDS: NICOTINE 21MG/24HR 1 EA TRANSDERMAL TD SCH (08:38)
[2022-06-04 18:55] VITALS: BP 114/63
[2022-06-04] MEDS: traZODone 50 MG TAB PO PRN (21:19)
[2022-06-05 06:03] VITALS: BP 120/59
[2022-06-05] MEDS: NICOTINE 21MG/24HR 1 EA TRANSDERMAL TD SCH (09:00)
[2022-06-05 16:14] VITALS: BP 114/56
[2022-06-05] MEDS: traZODone 50 MG TAB PO PRN (21:12)
[2022-06-05] MEDS: MOM 30ML SUSPENSION UDC PO PRN (22:51)
[2022-06-06] MEDS: NICOTINE 21MG/24HR 1 EA TRANSDERMAL TD SCH (07:41)
[2022-06-06 16:31] VITALS: BP 119/57
[2022-06-07 06:52] VITALS: BP 121/56
[2022-06-07] MEDS: NICOTINE 21MG/24HR 1 EA TRANSDERMAL TD SCH (08:01)
[2022-06-07 18:42] VITALS: BP 131/65
[2022-06-07] MEDS: traZODone 50 MG TAB PO PRN (20:50)
[2022-06-08 05:58] VITALS: BP 101/61
[2022-06-08] MEDS: NICOTINE 21MG/24HR 1 EA TRANSDERMAL TD SCH (08:10)
[2022-06-08] MEDS ORDERED: ARIPiprazole MONOHYDRATE 400 MG INJ (ABILIFY)(FREE PSY INPT ONLY) IM ONE (13:00)
[2022-06-08 18:42] VITALS: BP 126/66
[2022-06-08] MEDS: MOM 30ML SUSPENSION UDC PO PRN (18:45)
[2022-06-09] MEDS: traZODone 50 MG TAB PO PRN (01:08)
[2022-06-09 05:51] VITALS: BP 107/57
[2022-06-09] MEDS: NICOTINE 21MG/24HR 1 EA TRANSDERMAL TD SCH (08:06)
[2022-06-09] MEDS ORDERED: ABIL1TAB11 PO ×2 (09:29→09:31)
[2022-06-09] MEDS ORDERED: ABIL1INJ2 IM (09:31)
== END 2022-06-09 11:58 | disposition home or self-care (01) | DRG 750 ==
LOC: M ED 15:52 → M ED INP 18:57 → M PSY 22:38
PROVIDERS: ADMIT Psychiatry & Neurology Psychiatry; ATTEND Psychiatry & Neurology Psychiatry
DX: F25.1 Schizoaffective disorder, depressive type (principal); F17.200 Nicotine dependence, unspecified, uncomplicated; F12.90 Cannabis use, unspecified, uncomplicated; F15.90 Other stimulant use, unspecified, uncomplicated; Z91.018 Allergy to other foods; Z88.8 Allergy status to other drugs, medicaments and biological substances

== ENCOUNTER → 2022-08-12 | Outpatient (CLI) | payer BC, OTHER, MEDICAID ==
[~2022-08-12] MED LIST changes: +ABIL1TAB11 PO; +BENZ0.5T2 PO; -BENZ0.5T23 PO
[2022-08-12 13:07] LABS: BASO # 0.1 10^3/uL (0.0-0.2); EOS # 0.8 10^3/uL (0.0-0.5); EOS % 9.6 % (0.0-3.0); HEMATOCRIT 41.6 % (42.0-52.0); HEMOGLOBIN 14.3 g/dl (13.5-17.5); LYMPH # 1.9 10^3/uL (1.5-5.0); LYMPH % 24.3 % (24.0-44.0); MEAN CORPUSCULAR HEMOGLOBIN 29.8 pg (27.0-33.0); MEAN CORPUSCULAR HGB CONC 34.4 g/dl (32.0-36.5); MEAN CORPUSCULAR VOLUME 86.7 fl (80.0-96.0); MONO # 0.6 10^3/uL (0.0-0.8); MONO % 7.7 % (2.0-8.0); NEUTROPHILS # 4.5 10^3/uL (1.5-8.5); NEUTROPHILS % 57.1 % (36.0-66.0); PLATELET COUNT, AUTOMATED 276 10^3/uL (150-450); WHITE BLOOD COUNT 7.9 10^3/uL (4.0-10.0)
[2022-08-12 13:14] LABS: HEMOGLOBIN A1c 5.1 % (4.0-6.0)
[2022-08-12 13:26] LABS: ALBUMIN 3.9 G/DL (3.2-5.2); ALKALINE PHOSPHATASE 118 U/L (46-116); ALT/SGPT 21 U/L (7.0-40); AST/SGOT 18 U/L (<34); BILIRUBIN,TOTAL 0.7 MG/DL (0.3-1.2); BLOOD UREA NITROGEN 11 MG/DL (9-23); CALCIUM LEVEL 8.8 MG/DL (8.5-10.1); CARBON DIOXIDE LEVEL 28 MMOL/L (20-31); CHLORIDE LEVEL 104 MMOL/L (98-107); CHOLESTEROL LEVEL 108 MG/DL (<200); CHOLESTEROL RISK RATIO 3.85 (<5); CREATININE FOR GFR 0.77 MG/DL (0.70-1.30); GLOMERULAR FILTRATION RATE > 60.0 (>60); GLUCOSE, FASTING 90 MG/DL (60-100); LDL CHOLESTEROL 66.2 MG/DL (<100); POTASSIUM SERUM 4.3 MMOL/L (3.5-5.1); SODIUM LEVEL 138 MMOL/L (136-145); TOTAL PROTEIN 7.1 G/DL (5.7-8.2); TRIGLYCERIDES LEVEL 69 MG/DL (<150)
[2022-08-12 13:29] LABS: FOLATE 12.2 NG/ML (>5.4); THYROID STIMULATING HORMONE 0.936 uIU/ML (0.55-4.78); TOTAL 25(OH) VITAMIN D 25.7 NG/ML (20.0-100.0)
[2022-08-12 13:30] LABS: VITAMIN B12 LEVEL 442 PG/ML (211-911)
== END ==
LOC: M LAB 12:22
DX: F25.1 Schizoaffective disorder, depressive type (principal)

== ENCOUNTER 2022-12-19 19:46 | Inpatient (IN) | payer MEDICAID, OTHER ==
[~2022-12-19] VITALS: Ht 177.8 cm; Wt 71.6 kg
[~2022-12-19 19:46] MED LIST changes: +ARIP10TA32 PO; +SERT50TA29 PO
[2022-12-19] MEDS ORDERED: med rec comment (20:25)
[2022-12-19] MEDS ORDERED: HOME MED LIST COMPLETE! XX SCH (20:25)
[2022-12-19 20:29] LABS: HEMATOCRIT 44.6 % (42.0-52.0); HEMOGLOBIN 15.9 g/dl (13.5-17.5); MEAN CORPUSCULAR HEMOGLOBIN 30.2 pg (27.0-33.0); MEAN CORPUSCULAR HGB CONC 35.7 g/dl (32.0-36.5); MEAN CORPUSCULAR VOLUME 84.6 fl (80.0-96.0); PLATELET COUNT, AUTOMATED 308 10^3/uL (150-450); RED BLOOD COUNT 5.27 10^6/uL (4.30-6.10); WHITE BLOOD COUNT 10.2 10^3/uL (4.0-10.0)
[2022-12-19 20:55] LABS: AMPHETAMINES LEVEL URINE NEGATIVE (NEGATIVE); BARBITURATES URINE NEGATIVE (NEGATIVE); BENZODIAZEPINES URINE NEGATIVE (NEGATIVE); CANNABINOIDS URINE NEGATIVE (NEGATIVE); COCAINE METABOLITE URINE NEGATIVE (NEGATIVE); METHADONE URINE NEGATIVE (NEGATIVE); OPIATES URINE NEGATIVE (NEGATIVE); PHENCYCLIDINE URINE NEGATIVE (NEGATIVE)
[2022-12-19 20:57] LABS: ETHYL ALCOHOL (ETHANOL) < 0.003 % (0.000-0.010)
[2022-12-19 20:59] LABS: ALBUMIN 4.3 G/DL (3.2-5.2); ALKALINE PHOSPHATASE 119 U/L (46-116); ALT/SGPT 40 U/L (7.0-40); AST/SGOT 20 U/L (<34); BILIRUBIN,DIRECT 0.2 MG/DL (<0.4); BILIRUBIN,TOTAL 0.5 MG/DL (0.3-1.2); BLOOD UREA NITROGEN 18 MG/DL (9-23); CALCIUM LEVEL 9.7 MG/DL (8.5-10.1); CARBON DIOXIDE LEVEL 25 MMOL/L (20-31); CHLORIDE LEVEL 102 MMOL/L (98-107); CREATININE FOR GFR 0.92 MG/DL (0.70-1.30); GLOMERULAR FILTRATION RATE > 60.0 (>60); GLUCOSE, FASTING 119 MG/DL (60-100); POTASSIUM SERUM 3.8 MMOL/L (3.5-5.1); SALICYLATE LEVEL < 3.0 MG/DL (<30); SODIUM LEVEL 139 MMOL/L (136-145); TOTAL PROTEIN 7.9 G/DL (5.7-8.2)
[2022-12-19 21:01] LABS: THYROID STIMULATING HORMONE 2.382 uIU/ML (0.55-4.78)
[2022-12-20] MEDS ORDERED: OLANZapine ORAL DISINTEGRATING TAB 5MG PO PRN (15:00)
[2022-12-20] MEDS ORDERED: traZODone 50 MG TAB PO PRN (15:00)
[2022-12-20] MEDS ORDERED: IBUPROFEN 400MG TAB PO PRN (15:00)
[2022-12-20] MEDS ORDERED: MAALOX 30 ML SUSP *UDC PO PRN (15:00)
[2022-12-20] MEDS ORDERED: MOM 30ML SUSPENSION UDC PO PRN (15:00)
[2022-12-20] MEDS ORDERED: diphenhydrAMINE 25MG CAP PO PRN (15:00)
[2022-12-20] MEDS ORDERED: ACETAMINOPHEN TAB 650MG DOSE (2X325MG) PO PRN (15:00)
[2022-12-20 17:09] VITALS: BP 133/66; TEMP 98.7; O2SAT 97
[2022-12-21 06:30] VITALS: BP 98/52; TEMP 97.5; O2SAT 97
[2022-12-21 16:07] VITALS: BP 111/57; TEMP 99; O2SAT 99
[2022-12-21] MEDS: ARIPiprazole 10 MG TAB PO SCH (20:55)
[2022-12-22 06:09] VITALS: BP 100/55; TEMP 98.4; O2SAT 99
[2022-12-22] MEDS: SERTRALINE HCL 50 MG TAB PO SCH (08:21)
[2022-12-22] MEDS ORDERED: ARIPiprazole MONOHYDRATE 400 MG INJ (ABILIFY)(FREE PSY INPT ONLY) IM ONE (11:00)
[2022-12-22 17:54] VITALS: BP 128/62; TEMP 98.8; O2SAT 97
[2022-12-22] MEDS: ARIPiprazole 10 MG TAB PO SCH (20:51)
[2022-12-23 06:10] VITALS: BP 111/59; TEMP 98; O2SAT 97
[2022-12-23] MEDS ORDERED: SERT50TA29 PO (08:19)
[2022-12-23] MEDS ORDERED: ABIL1INJ2 IM (08:19)
[2022-12-23] MEDS ORDERED: ABIL10TA9 PO (08:19)
[2022-12-23] MEDS: SERTRALINE HCL 50 MG TAB PO SCH (09:26)
[2022-12-23 15:43] VITALS: BP 123/56; TEMP 98.8; O2SAT 99
[2022-12-23] MEDS: ARIPiprazole 10 MG TAB PO SCH (21:04)
[2022-12-24 06:40] VITALS: BP 109/55; TEMP 97.9; O2SAT 98
[2022-12-24] MEDS: SERTRALINE HCL 50 MG TAB PO SCH (08:41)
[2022-12-24 16:23] VITALS: BP 138/73; TEMP 98.1; O2SAT 97
[2022-12-24] MEDS ORDERED: OLANZapine 10 MG TAB PO SCH (21:00)
[2022-12-25 06:23] VITALS: BP 134/62; TEMP 98.6; O2SAT 98
[2022-12-25] MEDS ORDERED: SERTRALINE HCL 50 MG TAB PO SCH (09:00)
[2022-12-25] MEDS ORDERED: PILL CUTTER 1 EACH XX PRN (09:25)
[2022-12-25] MEDS ORDERED: OLAN1TAB20 PO (09:43)
[2022-12-25] MEDS ORDERED: ABIL1TAB11 PO (09:43)
[2022-12-25] MEDS ORDERED: SERT25TA85 PO (09:43)
[2022-12-25] MEDS ORDERED: SERT50TA29 PO (09:43)
== END 2022-12-25 14:18 | disposition home or self-care (01) | DRG 750 ==
LOC: M ED 19:46 → M ED INP 12-20 15:00 → M PSY 12-20 16:52
PROVIDERS: ADMIT Student in an Organized Health Care Education/Training Program; ATTEND Student in an Organized Health Care Education/Training Program
DX: F25.9 Schizoaffective disorder, unspecified (principal); F60.3 Borderline personality disorder; R45.851 Suicidal ideations; Z91.018 Allergy to other foods; Z88.8 Allergy status to other drugs, medicaments and biological substances; Z79.899 Other long term (current) drug therapy; Z91.128 Patient's intentional underdosing of medication regimen for other reason; F12.10 Cannabis abuse, uncomplicated; F15.10 Other stimulant abuse, uncomplicated; F17.200 Nicotine dependence, unspecified, uncomplicated

== ENCOUNTER 2023-06-09 01:27 | Inpatient (IN) | payer MEDICAID, OTHER ==
[~2023-06-09] VITALS: Ht 177.8 cm; Wt 67.3 kg
[~2023-06-09 01:27] MED LIST changes: +ABIL10TA9 PO; +OLAN1TAB20 PO; +SERT25TA85 PO; +med rec comment
[2023-06-09 02:32] LABS: HEMATOCRIT 39.9 % (42.0-52.0); MEAN CORPUSCULAR HGB CONC 32.6 g/dl (32.0-36.5); MEAN CORPUSCULAR VOLUME 89.1 fl (80.0-96.0); PLATELET COUNT, AUTOMATED 321 10^3/uL (150-450); RED BLOOD COUNT 4.48 10^6/uL (4.30-6.10); WHITE BLOOD COUNT 10.9 10^3/uL (4.0-10.0)
[2023-06-09 02:54] LABS: ETHYL ALCOHOL (ETHANOL) < 0.003 % (0.000-0.010)
[2023-06-09 02:55] LABS: SALICYLATE LEVEL < 3.0 MG/DL (<30)
[2023-06-09 02:56] LABS: ALBUMIN 3.6 G/DL (3.2-5.2); ALKALINE PHOSPHATASE 138 U/L (46-116); ALT/SGPT 45 U/L (7.0-40); AST/SGOT 59 U/L (<34); BILIRUBIN,DIRECT 0.3 MG/DL (<0.4); BILIRUBIN,TOTAL 0.6 MG/DL (0.3-1.2); BLOOD UREA NITROGEN 13 MG/DL (9-23); CARBON DIOXIDE LEVEL 24 MMOL/L (20-31); CHLORIDE LEVEL 102 MMOL/L (98-107); CREATININE FOR GFR 0.86 MG/DL (0.70-1.30); GLOMERULAR FILTRATION RATE > 60.0 (>60); GLUCOSE, FASTING 81 MG/DL (60-100); POTASSIUM SERUM 3.9 MMOL/L (3.5-5.1); SODIUM LEVEL 133 MMOL/L (136-145); TOTAL PROTEIN 6.8 G/DL (5.7-8.2)
[2023-06-09 02:58] LABS: THYROID STIMULATING HORMONE 1.147 uIU/ML (0.55-4.78)
[2023-06-09 03:03] LABS: AMPHETAMINES LEVEL URINE NEGATIVE (NEGATIVE)
[2023-06-09 03:04] LABS: BARBITURATES URINE NEGATIVE (NEGATIVE); BENZODIAZEPINES URINE NEGATIVE (NEGATIVE); CANNABINOIDS URINE NEGATIVE (NEGATIVE); COCAINE METABOLITE URINE NEGATIVE (NEGATIVE); METHADONE URINE NEGATIVE (NEGATIVE); PHENCYCLIDINE URINE NEGATIVE (NEGATIVE)
[2023-06-09 03:08] LABS: OPIATES URINE POSITIVE (NEGATIVE)
[2023-06-09] MEDS ORDERED: MED REC IN PROGRESS XX SCH (08:45)
[2023-06-09] MEDS ORDERED: HOME MED LIST COMPLETE! XX SCH (09:50)
[2023-06-09] MEDS ORDERED: MAALOX 30 ML SUSP *UDC PO PRN (10:50)
[2023-06-09] MEDS ORDERED: IBUPROFEN 400MG TAB PO PRN (10:50)
[2023-06-09] MEDS ORDERED: ACETAMINOPHEN TAB 650MG DOSE (2X325MG) PO PRN (10:50)
[2023-06-09 13:57] VITALS: BP 127/60; TEMP 98.2; O2SAT 98
[2023-06-09] MEDS: NICOTINE 21MG/24HR 1 EA TRANSDERMAL TD SCH (16:36)
[2023-06-09] MEDS: diphenhydrAMINE 25MG CAP PO PRN (18:05)
[2023-06-09] MEDS: OLANZapine ORAL DISINTEGRATING TAB 5MG PO PRN (18:05)
[2023-06-09] MEDS: LORazepam 2 MG TAB PO STA (18:12)
[2023-06-09] MEDS: diphenhydrAMINE 25MG CAP PO STA (18:12)
[2023-06-09 19:00] VITALS: BP 130/60; TEMP 99.5; O2SAT 100
[2023-06-09 19:15] VITALS: BP 97/46; TEMP 98.4; O2SAT 97
[2023-06-10] MEDS: OLANZapine 5 MG TAB PO SCH (13:03)
[2023-06-10] MEDS: MUPIROCIN 2% OINT 22 GM TUBE TOP SCH ×2 (16:00)
[2023-06-10 16:54] VITALS: BP 96/74; TEMP 98.8; O2SAT 98
[2023-06-10] MEDS: traZODone 50 MG TAB PO PRN (20:18)
[2023-06-11 06:19] VITALS: BP 137/66; TEMP 97.8; O2SAT 99
[2023-06-11] MEDS: ARIPiprazole MONOHYDRATE 400 MG INJ (ABILIFY)(FREE PSY INPT ONLY) IM ONE (11:20)
[2023-06-11 16:36] VITALS: BP 129/62; TEMP 98.4; O2SAT 97
[2023-06-12 06:28] VITALS: BP 115/59; TEMP 97.2; O2SAT 98
[2023-06-12 14:56] VITALS: BP 118/58; TEMP 99.4; O2SAT 99
[2023-06-12] MEDS: MOM 30ML SUSPENSION UDC PO PRN (21:26)
[2023-06-13 06:34] VITALS: BP 139/63; TEMP 97.7; O2SAT 100
[2023-06-13] MEDS: SIMETHICONE 80MG CHEW TAB PO PRN (15:12)
[2023-06-13 16:33] VITALS: BP 123/69; TEMP 98.3; O2SAT 98
[2023-06-14 06:20] VITALS: BP 146/62; TEMP 97.8; O2SAT 100
[2023-06-14 17:29] VITALS: BP 137/60; TEMP 98.9; O2SAT 99
[2023-06-14] MEDS: OLANZapine 10 MG TAB PO SCH (20:10)
[2023-06-15 06:17] VITALS: BP 122/60; TEMP 97.4; O2SAT 98
[2023-06-15] MEDS ORDERED: TRAZ-252 PO (07:51)
[2023-06-15] MEDS ORDERED: OLAN1TAB16 PO (07:51)
[2023-06-15] MEDS ORDERED: NICO21PAT TD (07:51)
[2023-06-15] MEDS ORDERED: SIME80TA16 PO (07:51)
[2023-06-15] MEDS: OLANZapine 5 MG TAB PO SCH (08:19)
== END 2023-06-15 10:00 | disposition home or self-care (01) | DRG 750 ==
LOC: M ED 01:27 → M ED INP 10:50 → M PSY 14:00
PROVIDERS: ADMIT Student in an Organized Health Care Education/Training Program; ATTEND Student in an Organized Health Care Education/Training Program
DX: F25.9 Schizoaffective disorder, unspecified (principal); Z59.00 Homelessness unspecified; F11.10 Opioid abuse, uncomplicated; F60.2 Antisocial personality disorder; F17.210 Nicotine dependence, cigarettes, uncomplicated; Z88.8 Allergy status to other drugs, medicaments and biological substances; Z79.899 Other long term (current) drug therapy; F12.90 Cannabis use, unspecified, uncomplicated; F15.90 Other stimulant use, unspecified, uncomplicated; F60.3 Borderline personality disorder

== ENCOUNTER 2023-06-24 02:42 | Emergency (ER) | payer MEDICAID, OTHER ==
[~2023-06-24] VITALS: Ht 177.8 cm; Wt 69.1 kg
[~2023-06-24 02:42] MED LIST changes: +NICO21PAT TD; +OLAN1TAB16 PO; +SIME80TA16 PO
[2023-06-24 02:43] VITALS: TEMP 100.3
[2023-06-24] MEDS: LIDOCAINE W/EPINEPHRINE 1% 20ML VIAL SC ONE (04:50)
[2023-06-24] MEDS: BOOSTRIX VACCINE (TETANUS/DIPHTH/ACEL. PERTUSSIS) 0.5ML SYR IM.IMMUN ONE (04:59)
[2023-06-24 06:15] VITALS: BP 118/55; O2SAT 97
== END 2023-06-24 06:35 | disposition home or self-care (01) ==
LOC: M ED 02:42
DX: S81.811A Laceration without foreign body, right lower leg, initial encounter (principal); W26.8XXA Contact with other sharp object(s), not elsewhere classified, initial encounter; F19.10 Other psychoactive substance abuse, uncomplicated; Z88.1 Allergy status to other antibiotic agents; Z79.899 Other long term (current) drug therapy; Y99.9 Unspecified external cause status; Y93.89 Activity, other specified; Y92.9 Unspecified place or not applicable

== ENCOUNTER → 2023-07-16 | Outpatient (REF) | payer OTHER ==
[2023-07-16 15:57] LABS: HEMOGLOBIN 9.2 g/dl (13.5-17.5); MEAN CORPUSCULAR HGB CONC 30.7 g/dl (32.0-36.5); MEAN CORPUSCULAR VOLUME 91.2 fl (80.0-96.0); PLATELET COUNT, AUTOMATED 307 10^3/uL (150-450); RED BLOOD COUNT 3.29 10^6/uL (4.30-6.10); WHITE BLOOD COUNT 6.7 10^3/uL (4.0-10.0)
[2023-07-16 16:29] LABS: ALBUMIN 2.9 G/DL (3.2-5.2); ALKALINE PHOSPHATASE 174 U/L (46-116); ALT/SGPT 39 U/L (7.0-40); AST/SGOT 46 U/L (<34); BLOOD UREA NITROGEN 22 MG/DL (9-23); CALCIUM LEVEL 8.6 MG/DL (8.5-10.1); CARBON DIOXIDE LEVEL 28 MMOL/L (20-31); CHLORIDE LEVEL 107 MMOL/L (98-107); CREATININE FOR GFR 0.66 MG/DL (0.70-1.30); GLOMERULAR FILTRATION RATE > 60.0 (>60); GLUCOSE, FASTING 94 MG/DL (60-100); POTASSIUM SERUM 4.8 MMOL/L (3.5-5.1); SODIUM LEVEL 140 MMOL/L (136-145); TOTAL PROTEIN 6.5 G/DL (5.7-8.2)
[2023-07-16 16:30] LABS: FREE T4 0.98 NG/DL (0.89-1.76)
[2023-07-16 16:31] LABS: THYROID STIMULATING HORMONE 1.965 uIU/ML (0.55-4.78)
[2023-07-16 16:34] LABS: CPK CREATINE PHOSPHOKINASE 434 U/L (46-171)
== END ==
LOC: M LAB REF 14:31
PROVIDERS: ATTEND Physician Assistant Medical
DX: R41.0 Disorientation, unspecified (principal)

== ENCOUNTER → 2025-01-02 | Outpatient (REF) | payer BC, MEDICAID, OTHER ==
[~2025-01-02] MED LIST changes: -ARIP10TA32 PO; +ARIP10TA63 PO; -IBUP1TAB6 GT; +SFHIBU600 GT
[2025-01-02 13:25] LABS: PLATELET COUNT, AUTOMATED 293 10^3/uL (150-450)
[2025-01-02 13:54] LABS: IRON (FE) 57 UG/DL (65-175)
[2025-01-02 13:56] LABS: ALT/SGPT 39 U/L (7.0-40); AST/SGOT 24 U/L (<34); CALCIUM LEVEL 10.1 MG/DL (8.5-10.1); CARBON DIOXIDE LEVEL 30 MMOL/L (20-31); CHLORIDE LEVEL 102 MMOL/L (98-107); CHOLESTEROL LEVEL 129 MG/DL (<200); CHOLESTEROL RISK RATIO 3.26 (<5); CREATININE FOR GFR 0.78 MG/DL (0.70-1.30); GLOMERULAR FILTRATION RATE > 90.0 (>60); LDL CHOLESTEROL 66.7 MG/DL (<100); NON-HDL-C 89.5 MG/DL; PERCENT SATURATION 16.3 % (19.7-50.0); POTASSIUM SERUM 4.4 MMOL/L (3.5-5.1); SODIUM LEVEL 140 MMOL/L (136-145); TRIGLYCERIDES LEVEL 114 MG/DL (<150)
[2025-01-02 13:59] LABS: VITAMIN B12 LEVEL 471 PG/ML (211-911)
[2025-01-02 14:09] LABS: ESTIMATED AVERAGE GLUCOSE 97.0 MG/DL (60-110)
== END ==
LOC: M SFHCADAM 09:45
PROVIDERS: ATTEND Family Medicine
DX: F25.1 Schizoaffective disorder, depressive type (principal); Z79.899 Other long term (current) drug therapy; D64.9 Anemia, unspecified